=== PATIENT | female | born 1995 ===

== ENCOUNTER 2018-04-06 07:49 | Emergency (ER) | payer OTHER ==
[2018-04-06 08:15] VITALS: O2SAT 98
[2018-04-06 08:17] VITALS: BMI 31.3
--- NOTE | 2018-04-06 10:28 | ED PDOC ---
HPI: Allergic Reaction Time Seen by Provider: 04/06/18 08:25 Chief Complaint (Nursing): Abdominal Pain Chief Complaint (Provider): Rash History Per: Patient History/Exam Limitations: no limitations Onset/Duration Of Symptoms: Days (x2) Current Symptoms Are (Timing): Still Present Additional Complaint(s): 22 y/o female with no significant pmhx, who presents to the ED for evaluation of full body rash x5 days. Patient states her rash started on Wednesday after using a new detergent. She states it is full body and itchy. She denies throat swelling, tongue swelling, and wheezing. PMD: None Past Medical History Reviewed: Historical Data, Nursing Documentation, Vital Signs Vital Signs: Last Vital Signs Temp 98 F 04/06/18 08:12 Pulse 70 04/06/18 08:12 Resp 20 04/06/18 08:12 BP 113/74 04/06/18 08:12 Pulse Ox 98 04/06/18 08:12 - Medical History PMH: Gastritis - Surgical History Surgical History: Tonsillectomy - Family History Family History: States: Unknown Family Hx - Home Medications Home Medications: Ambulatory Orders Medication Instructions Recorded DiphenhydrAMINE [Benadryl] 25 mg PO TID PRN #20 cap 04/06/18 Famotidine [Pepcid] 20 mg PO DAILY #14 tab 04/06/18 Prednisone 50 mg PO DAILY #3 tablet 04/06/18 - Allergies Allergies/Adverse Reactions: Allergies Allergy/AdvReac Type Severity Reaction Status Date / Time No Known Allergies Allergy Verified 04/06/18 08:29 Review of Systems ROS Statement: Except As Marked, All Systems Reviewed And Found Negative ENT: Negative for: Mouth Swelling, Throat Swelling Respiratory: Negative for: Wheezing Gastrointestinal: Positive for: Abdominal Pain (occasional for 2 months, not present now) Skin: Positive for: Rash Physical Exam - Reviewed Nursing Documentation Reviewed: Yes Vital Signs Reviewed: Yes - Physical Exam Appears: Positive for: Non-toxic, No Acute Distress Skin: Positive for: Normal Color, Warm, Dry. Negative for: Rash Eye Exam: Positive for: EOMI, Normal appearance, PERRL ENT: Positive for: Normal ENT Inspection Neck: Positive for: Normal, Painless ROM, Supple Respiratory: Negative for: Respiratory Distress Extremity: Positive for: Normal ROM Neurologic/Psych: Positive for: Alert, Oriented - ECG O2 Sat by Pulse Oximetry: 98 (RA) Pulse Ox Interpretation: Normal Disposition - Clinical Impression Clinical Impression: Rash, Abdominal pain - Patient ED Disposition Is Patient to be Admitted: No Doctor Will See Patient In The: Office Counseled Patient/Family Regarding: Studies Performed, Diagnosis, Need For Followup - Disposition Referrals: [facility] [Outside] Disposition: Routine/Home Disposition Time: 09:30 Condition: GOOD Additional Instructions: Take benadryl for itching. Follow up with your PCP in 2-3 days. Prescriptions: DiphenhydrAMINE [Benadryl] 25 mg PO TID PRN #20 cap PRN Reason: Itching / Pruritus Famotidine [Pepcid] 20 mg PO DAILY #14 tab Prednisone 50 mg PO DAILY #3 tablet Instructions: Skin Rash, Stomach Ache and Stomach Upset Medical Decision Making Medical Decision Makin:32 Initial Impression: Rash. Differential diagnoses include, but are not limited to allergic reaction, and possible urticaria but currently resolved. Plan: --Benadryl 50mg PO --Pepcid 20mg PO --Prednisone 60mg PO --Reevaluation Scribe Attestation: Documented by Luis Alfredo Jenkins, acting as a scribe for Yodit Yan MD. Provider Scribe Attestation: All medical record entries made by the Scribe were at my direction and personally dictated by me. I have reviewed the chart and agree that the record accurately reflects my personal performance of the history, physical exam, medical decision making, and the department course for this patient. I have also personally directed, reviewed, and agree with the discharge instructions and disposition.
[2018-04-06 10:37] VITALS: BP 122/65; PULSE 81; RESP 14; TEMP 98
== END 2018-04-06 10:38 | disposition home or self-care (01) ==
LOC: H.ER 07:49
DX: R21 Rash and other nonspecific skin eruption (principal); T78.40XA Allergy, unspecified, initial encounter

== ENCOUNTER 2018-08-20 18:35 | Emergency (ER) | payer OTHER, MEDICAID ==
[2018-08-20 18:36] VITALS: BMI 31.3
[2018-08-20 18:53] VITALS: BP 128/87; RESP 20; TEMP 98.1; O2SAT 100
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
[2018-08-20 19:28] VITALS: PULSE 94
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
== END 2018-08-20 20:17 | disposition home or self-care (01) ==
LOC: H.ER 18:35
DX: S20.219A Contusion of unspecified front wall of thorax, initial encounter (principal); M94.0 Chondrocostal junction syndrome [Tietze]; R07.9 Chest pain, unspecified
CPT/HCPCS: 71045; 81025; 96372; 99284; J1885